=== PATIENT | male | born 2000 | race Caucasian/White ===

== ENCOUNTER 2021-06-23 21:13 | Emergency (ER) | payer OTHER ==
[~2021-06-23] VITALS: Ht 177.8 cm; Wt 75.0 kg
[2021-06-23 21:17] VITALS: BP 136/91
[2021-06-23] MEDS ORDERED: BACITRACIN ZINC OINT UDPKT TOP ONE (22:15)
== END 2021-06-23 23:16 | disposition home or self-care (01) ==
LOC: ER 21:13
DX: T23.102A Burn of first degree of left hand, unspecified site, initial encounter (principal); T31.0 Burns involving less than 10% of body surface; X11.8XXA Contact with other hot tap-water, initial encounter; Y93.89 Activity, other specified; Y92.89 Other specified places as the place of occurrence of the external cause; Y99.8 Other external cause status
CPT/HCPCS: 16000; 99282